=== PATIENT | male | born 1985 | race Asian ===

== ENCOUNTER 2020-06-03 17:07 | Emergency (ER) | payer MEDICAID ==
[~2020-06-03] VITALS: Ht 170.2 cm; Wt 82.6 kg
[2020-06-03 17:22] VITALS: BP 152/84
[2020-06-03 18:11] LABS: BASOPHILS # (AUTO) 0.1 K/uL (0.00-0.22); BASOPHILS % (AUTO) 0.6 % (0.0-2.0); EOSINOPHILS # (AUTO) 0.2 K/uL (0-0.4); HEMATOCRIT 45.2 % (36-52); HEMOGLOBIN 15.4 g/dL (12.0-18.0); LYMPHOCYTES # (AUTO) 3.1 K/uL (2.0-11.5); LYMPHOCYTES % (AUTO) 34.2 % (20.5-51.1); MEAN CORPUSCULAR HEMOGLOBIN 30 pg (27-31); MEAN CORPUSCULAR HGB CONC 34 g/dL (33-37); MEAN CORPUSCULAR VOLUME 87.7 fL (80-94); MONOCYTES # (AUTO) 0.6 K/uL (0.8-1.0); NEUTROPHILS % (AUTO) 56.2 % (42.2-75.2); PLATELET COUNT (AUTO) 314 K/uL (140-450); RED BLOOD CELL COUNT(AUTO) 5.15 MIL/uL (4.20-6.10); RED CELL DISTRIBUTION WIDTH 13.3 % (11.6-13.7)
[2020-06-03 18:27] LABS: ALBUMIN 4.4 g/dL (3.4-5.0); ANION GAP 14.4 (8-16); CARBON DIOXIDE 28.6 mmol/L (21-32); TOTAL BILIRUBIN 0.5 mg/dL (0.0-1.0)
[2020-06-03 20:19] VITALS: BP 138/95
== END 2020-06-03 20:19 | disposition home or self-care (01) ==
LOC: MED 17:07
DX: R07.9 Chest pain, unspecified (principal); K21.9 Gastro-esophageal reflux disease without esophagitis; Z88.1 Allergy status to other antibiotic agents; Z90.89 Acquired absence of other organs
CPT/HCPCS: 36415; 71045; 80053; 84484; 85025; 93005; 99285

== ENCOUNTER 2020-06-07 19:05 | Emergency (ER) | payer MEDICAID ==
[~2020-06-07] VITALS: Ht 170.2 cm; Wt 81.6 kg
[2020-06-07 19:07] VITALS: BP 133/98
--- NOTE | 2020-06-07 19:09 | NUR ---
To bed 11
[2020-06-07 19:16] VITALS: BP 137/95
--- NOTE | 2020-06-07 19:16 | NUR ---
CHRISTINA Serrano at bedside.
--- NOTE | 2020-06-07 20:20 | NUR ---
Patient discharged with v/s stable. Written and verbal after care instructions given and explained. Patient verbalized understanding. Ambulatory with steady gait. All questions addressed prior to discharge. Advised to follow up with PMD.
== END 2020-06-07 20:20 | disposition home or self-care (01) ==
LOC: MED 19:05
DX: R51.9 Headache, unspecified (principal); Z88.8 Allergy status to other drugs, medicaments and biological substances
CPT/HCPCS: 99281